=== PATIENT | male | born 1995 | race Two or more races ===

== ENCOUNTER 2023-11-01 20:12 | Outpatient (CLI) | payer OTHER, SELFPAY | END 2023-11-01 20:13 | disposition home or self-care (01) | LOC: SLEEP 20:16 | DX: G47.33 Obstructive sleep apnea (adult) (pediatric) (principal) | CPT/HCPCS: 95810 ==

== ENCOUNTER 2024-02-14 01:20 | Outpatient (CLI) | payer OTHER, BC, SELFPAY | END 2024-02-14 01:21 | disposition home or self-care (01) | LOC: AMB 02-25 02:44 | PROVIDERS: Visit Provider Family Medicine | DX: F10.129 Alcohol abuse with intoxication, unspecified (principal); S89.92XA Unspecified injury of left lower leg, initial encounter; V49.9XXA Car occupant (driver) (passenger) injured in unspecified traffic accident, initial encounter; Y92.410 Unspecified street and highway as the place of occurrence of the external cause | CPT/HCPCS: A0425; A0429 ==

== ENCOUNTER 2024-03-15 15:44 | Emergency (ER) | payer OTHER, BC, SELFPAY ==
[2024-03-15 15:51] VITALS: BP 143/97; PULSE 99; RESP 18; TEMP 35.8; O2SAT 98; BMI 35.0
--- NOTE | 2024-03-15 16:37 | ED.GENADULT ---
HPI - General Adult General Chief complaint: Headache/Migraine Stated complaint: headache started 2 days ago, nausea, dizzy Time Seen by Provider: 03/15/24 16:29 History of Present Illness HPI narrative: 2 days ago started to feel sick and went to bed. woke up at midnight with severe pain hip shoulders and knee. the next day had a fever and sweating. last night still sweating. this morning woke up with headache. pain worse with getting up , coughing, light. tried food, water, electrolytes, salt and sugar has not helped. pt has not ever taken temperature. tried tylenol and ibuprofen at 2pm. already takes tramadol and pregloblin for leg pain. 28-year-old man presenting to the emergency department with complaint of 2 days of illness. Was feeling sick maybe starting a couple of days ago and then presents here about 15 hours after started to have intense pain over hip and shoulders. He was subsequently then with sweats and has developed a severe headache. Some cough. No particular rash. Has tried to rehydrate and not really helped. He has taken acetaminophen and ibuprofen without relief. Some neck ache and backache as well. Does have chronic leg pain taking tramadol and and pregabalin. These are war injuries. Related Data Home Medications ?Medication ?Instructions ?Recorded ?Confirmed amitriptyline 03/15/24 dextroamphetamine-amphetamine ER 1 cap PO QAM 03/15/24 03/15/24 25 mg 24hr capsule,extend release duloxetine 30 mg capsule,delayed 30 mg PO DAILY 03/15/24 03/15/24 release pregabalin 25 mg capsule 25 mg PO 3XD 03/15/24 03/15/24 pregabalin 50 mg capsule PO 03/15/24 tramadol 50 mg tablet 50 - 100 mg PO QID PRN 03/15/24 03/15/24 Allergies Allergy/AdvReac Type Severity Reaction Status Date / Time fluoxetine Allergy Intermediate Verified 03/15/24 15:58 Review of Systems Status of ROS: Reports: 6 or more systems reviewed and unremarkable except as noted in History and below Exam Narrative: Exam Narrative: Pleasant. Seems generally uncomfortable. Speaking fluidly. Skin is warm and dry without apparent rash. Extremities are well perfused without edema. Cranial nerves 2-12 intact. Pupils are 3 mm brisk in equal. Negative Kernig's, Brudzinski's. Generally sore with transitions throughout his back and neck. No facial swelling or erythema. Sore to insertion of upper cervical musculature at the occipital prominence. Const: Vital Signs, click to edit/add: Vital Signs - 24 hr 03/15/24 15:51 Temperature 96.4 F L Pulse Rate [Pulse Oximeter] 99 Respiratory Rate 18 Blood Pressure [Ri ght Upper Arm] 143/97 H Pulse Oximetry 98 Oxygen Delivery Me thod Room Air Documenting provider has reviewed patient's vital signs: yes Course Vital Signs Vital signs: Initial Vital Signs Temperature 96.4 F L 03/15/24 15:51 Temperature Source Temporal Artery Scan 03/15/24 15:51 Pulse Rate 99 03/15/24 15:51 Respiratory Rate 18 03/15/24 15:51 Blood Pressure 143/97 H 03/15/24 15:51 Blood Pressure Mean 112 H 03/15/24 15:51 Blood Pressure Position Supine 03/15/24 15:51 Pulse Oximetry 98 03/15/24 15:51 Oxygen Delivery Method Room Air 03/15/24 15:51 Vital Signs Temperature 96.4 F L 03/15/24 15:51 Pulse Rate 99 03/15/24 15:51 Respiratory Rate 18 03/15/24 15:51 Blood Pressure 143/97 H 03/15/24 15:51 Pulse Oximetry 98 03/15/24 15:51 Oxygen Delivery Method Room Air 03/15/24 15:51 Temperature 96.4 F L 03/15/24 15:51 Pulse Rate 81 03/15/24 18:44 Respiratory Rate 18 03/15/24 18:44 Blood Pressure 147/90 H 03/15/24 18:44 Pulse Oximetry 98 03/15/24 18:45 Oxygen Delivery Method Room Air 03/15/24 18:44 Medications Administered Medications: Discontinued Medications Generic Name Dose Route Start Last Admin Trade Name Freq PRN Reason Stop Dose Admin Hydromorphone HCl 0.5 mg 03/15/24 20:20 03/15/24 20:33 Hydromorphone 0.5 Mg/0.5 Ml Inj IVP 03/15/24 20:21 0.5 mg ONCE ONE Administration Sodium Chloride 1,000 mls @ 1,000 mls/hr 03/15/24 16:50 03/15/24 18:40 0.9 % Sodium Chloride 1000 Ml IV 03/15/24 17:49 Infused .Q1H ONE Infusion Ketamine HCl 20 mg/ Sodium 100.2 mls @ 200.4 mls/hr 03/15/24 18:10 03/15/24 19:05 Chloride IVPB 03/15/24 18:11 Infused ONCE ONE Infusion Ketorolac Tromethamine 30 mg 03/15/24 16:50 03/15/24 17:11 Ketorolac 30 Mg/Ml Inj IVP 03/15/24 16:51 30 mg ONCE ONE Administration Medical Decision Making MDM Narrative Medical decision making narrative: With what appears to to be of infectious etiology with myalgias and related headache. Not clearly meningeal however. Certainly could be head bleed but does not explain the reported chills and fever really. I suppose hydrocephalus would be in differential as well. Sinus headache? Somewhat occipital as he at various times describes the distribution path of his headache but not clearly reproducible to percussion on exam. Initiating ketorolac and IV fluids symptom relief. Otherwise would consider ketamine. Pain dose ketamine piggyback was given Discussed case at length. Reassuring labs and other than headache without overt meningeal signs. Following treatment still not completely better. Is still concerned in particular with the headache. With occipital distribution I did offer test dosing of lidocaine in occipital block. Declined. Will proceed with a head CT particularly if we will be considering a spinal tap. I did review head CT with looks unremarkable for acute anomaly. INDICATION: Headache TECHNIQUE: Noncontrast axial CT of the head. Coronal and sagittal reformats. Bone and soft tissue algorithms. COMPARISON: No relevant comparison studies available at this institution. FINDINGS: The ventricles and cortical sulci appear age-appropriate. No midline shift or mass effect. No acute intracranial hemorrhage or extra-axial fluid collection. Ortiz-white matter differentiation is grossly maintained. White matter attenuation is within normal limits. Intracranial vessels are unremarkable for technique. Midline structures are unremarkable. Bony calvarium appears grossly intact. Paranasal sinuses and mastoid air cells are clear. Orbits are unremarkable. IMPRESSION: Unremarkable CT head. No evidence of acute intracranial abnormality. Would still like more relief of the discomfort. Finally given dose of hydromorphone Lab Data Lab results reviewed: Yes I reviewed the patient's lab results Labs: Lab Results 03/15/24 Range/Units 17:01 WBC 5.40 (4.50-11.00) K/uL RBC 4.71 (4.30-5.90) m/uL Hgb 15.1 (13.5-17.5) gm/dL Hct 42.9 (37.0-53.0) % MCV 91 (80-100) fL MCH 32 (26-34) pg MCHC 35 (32-36) gm/dL RDW Coeff of [place] 11.9 (11.5-15.5) % Plt Count 132 L (140-440) K/uL Neut % (Auto) 60.3 (42.0-72.0) % Lymph % (Auto) 25.2 (20-44) % [place] % (Auto) 12.8 H (0.0-11.0) % Eos % (Auto) 1.3 (0.0-7.0) % Baso % (Auto) 0.2 (0.0-3.0) % Neut # (Auto) 3.26 (1.7-7.0) K/uL Lymph # (Auto) 1.36 (0.90-2.90) K/uL [place] # (Auto) 0.70 (0.00-0.90) K/UL Eos # (Auto) 0.07 (0.00-0.50) K/uL Baso # (Auto) 0.01 (0.00-0.30) K/uL Abs Immat Gran (auto) 0.01 (0.00-0.30) K/uL Imm/Tot Granulo (auto) 0.2 % SARS-CoV-2 (PCR) Negative SARS-CoV-2 (Negative) Influenza Type A (PCR) Negative PCR FLU A (Negative) Influenza Type B (PCR) Negative PCR FLU B (Negative) Discharge Plan Discharge Clinical Impression: Headache Patient Disposition: Home w/ Parent or Adult Additional Instructions: As we discussed it sounds as though you have some sort of a viral process causing the generalized aches and fever-like symptoms. I think this amplified your tendency to headache. Your head CT is reassuring. You might be helped by an injection at the occipital nerve but I understand you want to defer that at this time. Follow-up in a couple of days if not improved or sooner if clearly worsening with severity of headache, repeated vomiting, altered mentation, new and focal weakness, visual changes, escalating fever. I would continue also with cold packs to your neck; maybe head as well. Prescriptions: No Action tramadol 50 mg tablet 50 - 100 mg PO QID PRN dextroamphetamine-amphetamine 25 mg capsule,extended release 24hr 1 cap PO QAM duloxetine 30 mg capsule,delayed release(DR/EC) 30 mg PO DAILY pregabalin 25 mg capsule 25 mg PO 3XD pregabalin 50 mg capsule PO amitriptyline Follow Up/Referrals: Provider,Not a Local [Primary Care Provider] - Stand Alone Forms: [facility] Info Instructions
[2024-03-15] MEDS: 0.9 % SODIUM CHLORIDE 1000 ml 1,000 ML IV (17:10)
[2024-03-15] MEDS: KETOROLAC 30 MG/ML inj IVP (17:11)
[2024-03-15 17:35] LABS: Basophils Absolute Auto 0.01 K/uL (0.00-0.30); Basophils Percent Auto 0.2 % (0.0-3.0); Eosinophils Absolute Auto 0.07 K/uL (0.00-0.50); Eosinophils Percent Auto 1.3 % (0.0-7.0); Hematocrit 42.9 % (37.0-53.0); Hemoglobin* 15.1 gm/dL (13.5-17.5); Immature Granulocytes Abs Auto 0.01 K/uL (0.00-0.30); Immature Granulocytes Pct Auto 0.2 %; Lymphocytes Absolute Auto 1.36 K/uL (0.90-2.90); Lymphocytes Percent Auto 25.2 % (20-44); Mean Corpuscular HGB Conc 35 gm/dL (32-36); Mean Corpuscular Hemoglobin 32 pg (26-34); Mean Corpuscular Volume 91 fL (80-100); Monocytes Percent Auto 12.8 % (0.0-11.0); Neutrophils Absolute Auto 3.26 K/uL (1.7-7.0); Neutrophils Percent Auto 60.3 % (42.0-72.0); Platelet Count* 132 K/uL (140-440); RDW Coefficient of Variation % 11.9 % (11.5-15.5); Red Blood Count 4.71 m/uL (4.30-5.90)
[2024-03-15 17:41] LABS: Slide Review Reflex No
[2024-03-15 17:52] LABS: PCR FLU A Negative PCR FLU A (Negative); PCR FLU B Negative PCR FLU B (Negative); SARS PCR* Negative SARS-CoV-2 (Negative)
--- NOTE | 2024-03-15 18:10 | CRLHL7_ITS ---
For Patients: As a result of the Century Cures Act, medical imaging exams and procedure reports are released immediately into your electronic medical record. You may view this report before your referring provider. If you have questions, please contact your health care provider. INDICATION: Headache TECHNIQUE: Noncontrast axial CT of the head. Coronal and sagittal reformats. Bone and soft tissue algorithms. COMPARISON: No relevant comparison studies available at this institution. FINDINGS: The ventricles and cortical sulci appear age-appropriate. No midline shift or mass effect. No acute intracranial hemorrhage or extra-axial fluid collection. Ortiz-white matter differentiation is grossly maintained. White matter attenuation is within normal limits. Intracranial vessels are unremarkable for technique. Midline structures are unremarkable. Bony calvarium appears grossly intact. Paranasal sinuses and mastoid air cells are clear. Orbits are unremarkable. IMPRESSION: Unremarkable CT head. No evidence of acute intracranial abnormality. Please note that all CT scans at this facility use dose modulation, iterative reconstruction, and/or weight-based dosing when appropriate to reduce radiation dose to as low as reasonably achievable. Dictated by Amy Connell MD @ 03/15/2024 7:47:04 PM (Electronically Signed)
[2024-03-15] MEDS: KETAMINE 50 MG/0.5 ML 20 MG in 0.9 % SODIUM CHLORIDE 100 ml 100 ML 200.4 MG IVPB (18:30)
[2024-03-15 18:44] VITALS: BP 147/90; PULSE 81; RESP 18; O2SAT 97
[2024-03-15 18:45] VITALS: O2SAT 98
[2024-03-15] MEDS: HYDROmorphone 0.5 mg/0.5 ml inj IVP (20:33)
== END 2024-03-15 20:35 | disposition home or self-care (01) ==
PROVIDERS: Emergency Provider Family Medicine
DX: R51.9 Headache, unspecified (principal)
CPT/HCPCS: 36415; 70450; 85025; 87631; 94761; 96365; 96375; 99284; J1170; J1885; J3490; J7030